=== PATIENT | male | born 1945 | race Caucasian/White ===

== ENCOUNTER → 2017-03-29 | Outpatient (CLI) | payer MEDICARE ==
--- NOTE | 2017-03-29 11:46 | RADRPT ---
EXAM DATE/TIME: 03/29/2017 00:00 [place] COMPARISON: No previous studies available for comparison. INDICATIONS : Claudication TECHNIQUE: Five-station segmental examination of the lower extremities was performed pre and post extercise. Pulsed-cuff waveform tracings and pressures were recorded. Ankle-brachial indices and toe-brachial indices were calculated. PRESSURES (mmHg): Pre Exercise: Brachial (arm): Right 122 Left 118 Ankle: Right 117 Left 159 PACHECO: Right 0.96 Left 1.30 TBI: Right 0.57 Left 0.66 Post Exercise: Brachial (arm): Right 138 Ankle: Right 0.95 Left 1.14 PULSED CUFF WAVEFORMS: Demonstrate normal amplitude bilaterally. CONCLUSION: 1. Normal pre-and post exercise PACHECO's 2. Slightly diminished TBIs bilaterally. Oniel Mccoy MD on March 29, 2017 at 11:44 Board Certified Radiologist. This report was verified electronically.
== END ==
LOC: HCAV 10:30
DX: M79.651 Pain in right thigh (principal); I73.9 Peripheral vascular disease, unspecified
CPT/HCPCS: 93924